=== PATIENT | female | born 1955 | race Caucasian/White ===

== ENCOUNTER 2017-11-01 11:11 | Emergency (ER) | payer MEDICARE, MEDICAID ==
--- NOTE | 2017-11-01 11:44 | EDM.PDOC ---
ED HPI GENERAL MEDICAL PROBLEM - General Chief Complaint: Chest Pain Stated Complaint: not feeling right Time Seen by Provider: 11/01/17 11:30 Source of Information: Reports: Patient, RN, Significant Other History Limitations: Reports: No Limitations - History of Present Illness INITIAL COMMENTS - FREE TEXT/NARRATIVE: 62 yr female presents with chest pain and left arm pain with hx of heart disease , April 2013 and had a Resolute Integrity stent LADCA States no pain at this time. Pain to arm started yesterday and thought was related to more work with sewing, but persisted. States has been having some gastric reflux and recently started taking Pepcid. She use to take ranitidine. States long hx of stomach concerns. States she has been on and off medications for gastric reflux. - Related Data Allergies Allergy/AdvReac Type Severity Reaction Status Date / Time tramadol Allergy Itching Verified 01/25/15 09:20 ED ROS GENERAL - Review of Systems Review Of Systems: See Below Constitutional: Reports: No Symptoms HEENT: Reports: Glasses Respiratory: Reports: No Symptoms Cardiovascular: Reports: Chest Pain. Denies: Dyspnea on Exertion, Edema, Palpitations GI/Abdominal: Reports: Other (gastric reflux) Musculoskeletal: Reports: Shoulder Pain (left arm) Skin: Reports: No Symptoms Neurological: Reports: No Symptoms Psychiatric: Reports: No Symptoms ED EXAM, GENERAL - Physical Exam Exam: See Below Exam Limited By: No Limitations General Appearance: Alert, No Apparent Distress Ears: Hearing Grossly Normal Nose: Normal Inspection Throat/Mouth: Normal Lips, No Airway Compromise Head: Atraumatic, Normocephalic Neck: Supple, Non-Tender Respiratory/Chest: No Respiratory Distress, Lungs Clear, Normal Breath Sounds Cardiovascular: Normal Peripheral Pulses, Regular Rate, Rhythm, No Edema GI/Abdominal: Normal Bowel Sounds, Soft, Non-Tender Extremities: Normal Inspection, Non-Tender, No Pedal Edema Neurological: Alert, Oriented, Normal Cognition Psychiatric: Normal Affect, Normal Mood Skin Exam: Warm, Dry, Normal Color Course - Vital Signs Last Recorded V/S: Last Vital Signs Temp 98.3 F 11/01/17 11:38 Pulse 89 11/01/17 11:38 Resp 12 11/01/17 11:38 BP 151/90 H 11/01/17 11:38 Pulse Ox 98 11/01/17 11:38 - Orders/Labs/Meds Orders: Active Orders 24 hr Category Date Time Status EKG Documentation Completion [RC] ASDIRECTED Care 11/01/17 11:30 Active CBC WITH AUTO DIFF [HEME] Stat Lab 11/01/17 11:29 Ordered COMPREHENSIVE METABOLIC PN,CMP [CHEM] Stat Lab 11/01/17 11:29 Ordered TROPONIN I [CHEM] Stat Lab 11/01/17 11:29 Ordered EKG 12 Lead [EK] Routine Ther 11/01/17 11:29 Ordered - Re-Assessments/Exams Free Text/Narrative Re-Assessment/Exam: 11/01/17 12:18 Lab results reviewed with pt and significant other. Troponins are negative. Recommend F/U with PCP for left shoulder pain, if needed. May use Tylenol and warm heat for arm. Continue with medications for GERD and return to PCP if symptoms persist. RTC or ER if symptoms worsen or if chest pain develops. Departure - Departure Time of Disposition: 12:20 Disposition: Home, Self-Care 01 Condition: Good Clinical Impression: Atypical chest pain, Gastroesophageal reflux disease, Upper extremity pain Referrals: PCP,None [Primary Care Provider] - - My Orders Last 24 Hours: My Active Orders 11/01/17 11:29 CBC WITH AUTO DIFF [HEME] Stat COMPREHENSIVE METABOLIC PN,CMP [CHEM] Stat TROPONIN I [CHEM] Stat EKG 12 Lead [EK] Routine 11/01/17 11:30 EKG Documentation Completion [RC] ASDIRECTED - Assessment/Plan Last 24 Hours: My Active Orders 11/01/17 11:29 CBC WITH AUTO DIFF [HEME] Stat COMPREHENSIVE METABOLIC PN,CMP [CHEM] Stat TROPONIN I [CHEM] Stat EKG 12 Lead [EK] Routine 11/01/17 11:30 EKG Documentation Completion [RC] ASDIRECTED
[2017-11-02] MEDS ORDERED: Aspirin 81 MG Tab.Chew PO SCH (08:00)
== END 2017-11-01 12:15 | disposition home or self-care (01) ==
LOC: LB.ED 11:11
DX: R07.89 Other chest pain (principal); K21.9 Gastro-esophageal reflux disease without esophagitis; Z88.5 Allergy status to narcotic agent; M79.621 Pain in right upper arm
CPT/HCPCS: 36415; 80053; 84484; 85025; 93005; 99284; A9270

== ENCOUNTER 2020-04-30 08:13 | Day surgery (SDC) | payer MEDICAID, MEDICARE ==
[~2020-04-30 08:13] MED LIST: Sodium Chloride 0.9% 1,000 ML IV SCH
[2020-04-30] MEDS ORDERED: Propofol 200 MG/20 ML SDV ONE (10:30)
--- NOTE | 2020-04-30 12:55 | OR ---
DATE OF OPERATION: 04/30/2020 SURGEON: Adrian Morrow MD PREOPERATIVE DIAGNOSIS: Dysphagia. POSTOPERATIVE DIAGNOSIS: Dysphagia. PROCEDURE: EGD. ANESTHESIA: MAC. ESTIMATED BLOOD LOSS: None. COMPLICATIONS: None. INDICATION FOR THE PROCEDURE: The patient is a 64-year-old female, who for the past several months has had an increasing difficulty swallowing. She feels like steak and other solid foods get stuck at her distal esophagus. She has never had an EGD before. She has been told she has had a hiatal hernia based on imaging. She is here today for EGD. DESCRIPTION OF PROCEDURE: Informed consent was obtained from the patient. The patient was taken to the operating room, placed on the table in left lateral decubitus position. Monitored anesthesia care was administered. Esophagogastroscope was then advanced through the mouth and directed towards the duodenum. Second portion of duodenum was reached and appeared normal. Distal antrum of the stomach also appeared normal. Retroflexion performed in the stomach, was also otherwise unremarkable. She did have a tiny hiatal hernia and very mild esophagitis at the GE junction. The remainder of the esophagus appeared normal. Esophagogastroscope was then withdrawn. FINDINGS: Very small hiatal hernia and mild esophagitis. RECOMMENDATIONS: We would recommend a short trial of PPI therapy with omeprazole for 8 weeks, which should resolve her esophagitis. JOSE /[id number]
== END 2020-04-30 12:00 | disposition home or self-care (01) ==
LOC: LB.SDS 08:13
PROVIDERS: ATTEND Surgery
DX: K21.0 Gastro-esophageal reflux disease with esophagitis (principal); K44.9 Diaphragmatic hernia without obstruction or gangrene; I10 Essential (primary) hypertension; E78.5 Hyperlipidemia, unspecified; Z87.891 Personal history of nicotine dependence; Z88.5 Allergy status to narcotic agent; Z88.2 Allergy status to sulfonamides; Z79.82 Long term (current) use of aspirin; Z79.899 Other long term (current) drug therapy
CPT/HCPCS: 43235; J2704; J7030

== ENCOUNTER 2020-10-30 15:44 | Emergency (ER) | payer MEDICARE ==
--- NOTE | 2020-10-30 16:21 | EDM.PDOC ---
ED HPI GENERAL MEDICAL PROBLEM - General Chief Complaint: General Stated Complaint: finger laceration right hand Time Seen by Provider: 10/30/20 16:05 Source of Information: Reports: Patient History Limitations: Reports: No Limitations - History of Present Illness INITIAL COMMENTS - FREE TEXT/NARRATIVE: patient presented to the ER with a cut to right thumb. Bleeding is controlled with pressure. No blood thinners. This occurred while cutting potatoes for dinner. Onset: Today Duration: Hour(s): (1) Location: Reports: Upper Extremity, Right Quality: Reports: Sharp Severity: Mild Improves with: Reports: Immobilization Treatments RESPITE COORDINATOR: Reports: Dressing(s) Right Finger-Thumb Pain Score (Numeric/FACES): 6 - Related Data Allergies Allergy/AdvReac Type Severity Reaction Status Date / Time tramadol Allergy Itching Verified 04/28/20 12:41 Home Meds: Home Meds Alendronate Sodium [Fosamax] 1 tab PO WEEKLY 04/28/20 [History] Aspirin 1 tab PO DAILY 04/28/20 [History] Cetirizine HCl 1 tab PO BEDTIME 04/28/20 [History] Cimetidine 1 tab DAILY 04/28/20 [History] Etanercept [Enbrel Sureclick] 50 mg SQ WEEKLY 04/28/20 [History] Fenofibrate 1 tab PO DAILY 04/28/20 [History] Fluticasone Propionate [Flonase] 1 spray BUCCAL BID 04/28/20 [History] Folic Acid 1 tab PO DAILY 04/28/20 [History] Methotrexate 8 tab PO WEEKLY 04/28/20 [History] Metoprolol Succinate 1 tab PO DAILY 04/28/20 [History] Potassium Chloride 1 cap PO DAILY 04/28/20 [History] Zolpidem [Ambien] 1 - 2 tab PO BEDTIME PRN 04/28/20 [History] hydroCHLOROthiazide [Hydrochlorothiazide] 1 tab PO DAILY 04/28/20 [History] Past Medical History HEENT History: Reports: Impaired Vision Cardiovascular History: Reports: NV Gastrointestinal History: Reports: GERD Psychiatric History: Reports: Anxiety - Past Surgical History Cardiovascular Surgical History: Reports: Coronary Artery Stent GI Surgical History: Reports: Appendectomy Social & Family History - Family History Family Medical History: No Pertinent Family History - Caffeine Use Caffeine Use: Reports: Coffee ED ROS GENERAL - Review of Systems Review Of Systems: See Below Constitutional: Reports: No Symptoms HEENT: Reports: No Symptoms Respiratory: Reports: No Symptoms Cardiovascular: Reports: No Symptoms Musculoskeletal: Reports: No Symptoms Skin: Reports: Other (there is a laceration wound to the right thumb. ) Neurological: Reports: No Symptoms Psychiatric: Reports: No Symptoms ED EXAM, GENERAL - Physical Exam Exam: See Below Exam Limited By: No Limitations General Appearance: Alert, WD/WN, No Apparent Distress Nose: Normal Inspection Throat/Mouth: Normal Inspection Head: Atraumatic Respiratory/Chest: No Respiratory Distress Cardiovascular: Normal Peripheral Pulses GI/Abdominal: Normal Bowel Sounds Skin Exam: Other (there is a 1.5cm superficial wound laceration to the right thumb. no injury to the nail. no active bleeding. ) Course - Vital Signs Last Recorded V/S: Last Vital Signs Temp 36.4 C 10/30/20 16:01 Pulse 65 10/30/20 16:01 Resp 16 10/30/20 16:01 BP 143/84 H 10/30/20 16:01 Pulse Ox 97 10/30/20 16:01 - Re-Assessments/Exams Free Text/Narrative Re-Assessment/Exam: wound was washed and cleaned while in the ER. no indication for suture closure.. antibiotic ointment was applied. Sterile dressing Departure - Departure Time of Disposition: 16:22 Disposition: Home, Self-Care 01 Condition: Good Clinical Impression: Laceration of thumb without damage to nail Qualifiers: Encounter type: initial encounter Foreign body presence: without foreign body Laterality: right Qualified Code(s): S61.011A - Laceration without foreign body of right thumb without damage to nail, initial encounter - Discharge Information *PRESCRIPTION DRUG MONITORING PROGRAM REVIEWED*: Not Applicable *COPY OF PRESCRIPTION DRUG MONITORING REPORT IN PATIENT LASHAUN: Not Applicable Referrals: PCP,None [Primary Care Provider] - Sepsis Event Note (ED) - Evaluation Sepsis Screening Result: No Definite Risk - Focused Exam Vital Signs: Vital Signs Temp Pulse Resp BP Pulse Ox 10/30/20 16:01 36.4 C 65 16 143/84 H 97 - Problem List & Annotations (1) Laceration of thumb without damage to nail SNOMED Code(s): 751931872 Code(s): S61.019A - LACERATION W/O FOREIGN BODY OF THMB W/O DAMAGE TO NAIL, INIT Status: Acute Priority: Low Current Visit: Yes Qualifiers: Encounter type: initial encounter Foreign body presence: without foreign body Laterality: right Qualified Code(s): S61.011A - Laceration without foreign body of right thumb without damage to nail, initial encounter - Problem List Review Problem List Initiated/Reviewed/Updated: Yes - Assessment/Plan Plan: - no doing dished the next 3 days. :) - apply antibiotics ointment on the wound once daily - replace the dressing daily for the next 3 days - watch for signs of infection - return to the ER if any or call your PCP
== END 2020-10-30 16:25 | disposition home or self-care (01) ==
LOC: LB.ED 15:44
DX: S61.011A Laceration without foreign body of right thumb without damage to nail, initial encounter (principal); I25.2 Old myocardial infarction; K21.9 Gastro-esophageal reflux disease without esophagitis; Z79.82 Long term (current) use of aspirin; Z79.899 Other long term (current) drug therapy; Z88.5 Allergy status to narcotic agent; W26.8XXA Contact with other sharp object(s), not elsewhere classified, initial encounter
CPT/HCPCS: 99282

== ENCOUNTER 2022-10-12 08:54 | Day surgery (SDC) | payer MEDICARE ==
[2022-10-12] MEDS: Sodium Chloride 0.9% 1,000 ML IV SCH (09:30)
[2022-10-12] MEDS ORDERED: Propofol 200 MG/20 ML SDV ONE (10:00)
== END 2022-10-12 11:05 | disposition home or self-care (01) ==
LOC: LB.SDS 08:54
PROVIDERS: ATTEND Surgery
DX: K29.50 Unspecified chronic gastritis without bleeding (principal); K21.9 Gastro-esophageal reflux disease without esophagitis; J44.9 Chronic obstructive pulmonary disease, unspecified; I10 Essential (primary) hypertension; E78.5 Hyperlipidemia, unspecified; I25.10 Atherosclerotic heart disease of native coronary artery without angina pectoris; J43.9 Emphysema, unspecified; F41.1 Generalized anxiety disorder; M81.0 Age-related osteoporosis without current pathological fracture; M06.9 Rheumatoid arthritis, unspecified; G47.9 Sleep disorder, unspecified; Z79.899 Other long term (current) drug therapy; Z79.82 Long term (current) use of aspirin; Z88.0 Allergy status to penicillin; Z88.5 Allergy status to narcotic agent; Z98.890 Other specified postprocedural states; Z90.49 Acquired absence of other specified parts of digestive tract; Z87.891 Personal history of nicotine dependence
CPT/HCPCS: 88305; 88342; J2704; J7030